=== PATIENT | female | born 1930 | race Caucasian/White ===

== ENCOUNTER 2019-07-23 00:17 | Inpatient (IN) | payer MEDICARE ==
[~2019-07-23] VITALS: Ht 149.9 cm; Wt 65.5 kg
[2019-07-23] VITALS (7 sets, daily range): BP systolic 118–179; BP diastolic 53–72
--- NOTE | 2019-07-23 00:24 | PHYS DOC ---
Past History Past Medical History: Arthritis, Asthma, CAD, CHF, COPD Past Surgical History: Coronary Bypass Surgery, Pacemaker Adult General Chief Complaint Chief Complaint: ".. I here.. visiting.. my ... daughter... got a bug ... or something.. really short.....of....breath....I .. feel.....like flu.... or something... :" [facility] HPI Patient is a 88 year old female who presents with above hx and complaints of dyspnea, wheezing, malaise, fevers, arthralgia, and coughing. Patient states she is from [facility] and is currently visiting her daughter here in [place] for the Holidays. ( Pt. has been living with daughter here for more than a year). Patient has past medical history of diabetes, hypertension, asthma, Parkinson's disease, constipation, A. fib, coronary artery disease with bypass surgery and pacer placement. The patient takes Zarelto 15 mg day. Patient is not normally on oxygen. Paramedics arrived sats were in the 80s on arrival. Paramedics and patient relates that DuoNeb treatments seemed to help her shortness of breath. Patient does have a history of past asthma exacerbations resulting in hospital admissions. Patient currently living with daughter here in [facility] for the past year because of generalized deconditioning and dementia issues. .Pt. reportedly doing well, had just been out shopping at [employer] day before yesterday. Pt. apparently likes ridding the scooter around the store. Review of Systems Review of Systems Constitutional: Hx of fever or chills [] Eyes: Denies change in visual acuity, redness, or eye pain [] HENT: Denies nasal congestion or sore throat [] Respiratory: Hx cough and shortness of breath [] Cardiovascular: No additional information not addressed in HPI [] GI: Denies abdominal pain, nausea, vomiting, bloody stools or diarrhea [] : Denies dysuria or hematuria [] Musculoskeletal: Denies back pain or joint pain [] Integument: Denies rash or skin lesions [] Neurologic: Denies headache, focal weakness or sensory changes [] Endocrine: Denies polyuria or polydipsia [] All other systems were reviewed and found to be within normal limits, except as documented in this note. Family History Family History Non-contrib Current Medications Current Medications Seee nursing for home meds Allergies Allergies Allergic to penicillin Physical Exam Physical Exam Constitutional: acute distress, ill in appearance. [] HENT: Normocephalic, atraumatic, bilateral external ears normal, oropharynx moist, no oral exudates, nose normal. [] Eyes: PERRLA, EOMI, conjunctiva normal, no discharge. [] Neck: Normal range of motion, no tenderness, supple, no stridor. [] JVD Cardiovascular:Heart rate regular rhythm, no murmur OR to the left] Lungs & Thorax: Bilateral breath sounds equal apexes scattered wheezes on au scultation. Has []midline scar. Left pacer . Intercostal retractions. Abdomen: Bowel sounds decreased, soft, no tenderness, no masses, no pulsatile masses. [Old scar Skin: Warm, dry, no erythema, no rash. Poor turgor Back: No tenderness, no CVA tenderness. [] Extremities: No tenderness, no cyanosis, no clubbing, ROM intact, no edema. Arthritic changes Neurologic: Alert and oriented X 3, moves extremities on request. Has distal sensory, no focal deficits noted per daughter, Tremor. Psychologic: Affect anxious, judgement impaired, obvious memory problems.., mood normal. [] EKG EKG My interpretation EKG shows a paced rhythm at 61 bpm. Does appear to have a pacer marked before T waves[] Radiology/Procedures Radiology/Procedures [][place] [address] IMAGING REPORT Signed PATIENT: CAIT PATTERSON ACCOUNT: [id number] : 1930 LOCATION: ER AGE: 88 SEX: F EXAM STATUS: PRE ER ORD. PHYSICIAN: VIKI MCKINNON MD REASON: Dyspnea, chest pain PROCEDURE: PORTABLE CHEST 1V AP chest x-ray HISTORY: Dyspnea, chest pain. FINDINGS: Dual-chamber cardiac pacemaker. Mediastinum and coronary bypass. Mild/moderate cardiomegaly. Aortic arch calcified plaque. Prominence of the pulmonary vasculature may indicate congestion. No pneumothorax, pulmonary opacities or pleural effusions. IMPRESSION: Mild cardiomegaly and pulmonary vascular congestion. Electronically signed by: Raz Hunter MD (07/23/2019 1:20 AM) [facility] DICTATED AND SIGNED BY: RAZ HUNTER MD DATE: 07/23/19119 CC: VIKI MCKINNON MD ~ Course & Med Decision Making Course & Med Decision Making Pertinent Labs and Imaging studies reviewed. (See chart for details) Pt admitted Dr. Rayo with Cardiology consult. Consult - will need home oxygen. Plan interrogation of pacer. Impression: 1. Respiratory Failure - Hypoxia 2. Asthma exacerbation 3. Accelerated hypertension 4. Viral syndrome 5. CHF-diastolic dysfunction BNP 864 6. Elevated d-dimer- 1.54 ( ON XARELTO 15) 7. Diabetes= glucose 197 8. History of dementia 9. History of Parkinson disease 10. History of A. fib & CADz 11. Mild elevation in AST= 42 12. Elevation Creat./ Bun 1.08/04 [] Dragon Disclaimer Dragon Disclaimer This electronic medical record was generated, in whole or in part, using a voice recognition dictation system. Departure Departure: Disposition: 01 HOME/RESIDENCE PRIOR TO ADM Condition: STABLE Dragon Disclaimer This chart was dictated in whole or in part using Voice Recognition software in a busy, high-work load, and often noisy Emergency Department environment. It may contain unintended and wholly unrecognized errors or omissions. Dragon Disclaimer This chart was dictated in whole or in part using Voice Recognition software in a busy, high-work load, and often noisy Emergency Department environment. It may contain unintended and wholly unrecognized errors or omissions. Dragon Disclaimer This chart was dictated in whole or in part using Voice Recognition software in a busy, high-work load, and often noisy Emergency Department environment. It may contain unintended and wholly unrecognized errors or omissions. VIKI MCKINNON MD Jul 23, 2019 00:24
[2019-07-23] MEDS ORDERED: ASPIRIN 81 MG TAB.CHEW PO ONE ×2 (00:45→02:15)
[2019-07-23] MEDS ORDERED: methylPREDNISolone SOD SUCC PF 125 MG/2 ML VIAL. IV ONE (00:45)
[2019-07-23] MEDS ORDERED: IV RINGERS SOLUTION,LACTATED 1,000 ML IV SCH (00:45)
[2019-07-23] MEDS ORDERED: IPRATRPIUM/ALBUTEROL 0.5/2.5MG 3 ML NEBU. NEB ONE (00:45)
[2019-07-23 00:51] LABS: BGAS PH 7.41 (7.35-7.45)
--- NOTE | 2019-07-23 01:23 | RAD ---
AP chest x-ray HISTORY: Dyspnea, chest pain. FINDINGS: Dual-chamber cardiac pacemaker. Mediastinum and coronary bypass. Mild/moderate cardiomegaly. Aortic arch calcified plaque. Prominence of the pulmonary vasculature may indicate congestion. No pneumothorax, pulmonary opacities or pleural effusions. IMPRESSION: Mild cardiomegaly and pulmonary vascular congestion. Electronically signed by: Raz Hunter MD (07/23/2019 1:20 AM) [facility]
[2019-07-23 01:41] LABS: CREATININE 1.1 mg/dL (0.6-1.0); GFR 46.9; POTASSIUM 4.1 mmol/L (3.5-5.1)
[2019-07-23 01:42] LABS: BASO # 0.1 x10^3/uL (0.0-0.2); BASO % 1 % (0-3); EOS # 0.3 x10^3/uL (0.0-0.7); EOS % 3 % (0-3); HEMATOCRIT 38.2 % (36.0-47.0); HEMOGLOBIN 12.6 g/dL (12.0-15.5); LYMPH # 1.1 x10^3/uL (1.0-4.8); LYMPH % 10 % (24-48); MEAN CORPUSCULAR HEMOGLOBIN 31 pg (25-35); MEAN CORPUSCULAR HGB CONC 33 g/dL (31-37); MEAN CORPUSCULAR VOLUME 94 fL (79-100); MONO # 1.1 x10^3/uL (0.0-1.1); MONO % 10 % (0-9); NEUT # 8.2 x10^3uL (1.8-7.7); NEUT % 76 % (31-73); PLATELET COUNT 297 x10^3/uL (140-400); RED BLOOD COUNT 4.07 x10^6/uL (3.50-5.40); RED CELL DISTRIBUTION WIDTH 15.6 % (11.5-14.5); WHITE BLOOD COUNT 10.8 x10^3/uL (4.0-11.0)
[2019-07-23 01:56] LABS: ALBUMIN 3.4 g/dL (3.4-5.0); DIRECT BILIRUBIN 0.1 mg/dL (0.0-0.2); MAGNESIUM 2.2 mg/dL (1.8-2.4); TOTAL BILIRUBIN 0.4 mg/dL (0.2-1.0); TOTAL PROTEIN 7.5 g/dL (6.4-8.2)
[2019-07-23 02:08] LABS: CLARITY,URINE CLEAR; COLOR,URINE YELLOW
[2019-07-23 02:09] LABS: AMORPHOUS SEDIMENT,UR PRESENT /HPF; BACTERIA,URINE FEW /HPF (0-FEW); BILIRUBIN,URINE NEG (NEG); GLUCOSE,URINE NEG (NEG); NITRITE,URINE NEG (NEG); SQUAMOUS EPITHELIAL CELL,UR OCC /LPF; UROBILINOGEN,URINE 0.2 mg/dL (0.2 mg/dL); WBC,URINE 0 /HPF (0-4)
[2019-07-23] MEDS ORDERED: ACETAMINOPHEN 325 MG TABLET PO PRN ×2 (02:15→14:30)
[2019-07-23] MEDS ORDERED: ONDANSETRON PF 4 MG/2 ML VIAL. IV PRN (02:15)
[2019-07-23] MEDS ORDERED: FUROSEMIDE 40 MG/4 ML VIAL IVP ONE (02:15)
[2019-07-23 02:20] LABS: BARBITURATES NEG (NEG); BENZODIAZEPINES NEG (NEG); CANNABINOIDS NEG (NEG); COCAINE NEG (NEG); METHADONE NEG (NEG); OPIATES NEG (NEG); PHENCYCLIDINE NEG (NEG)
[2019-07-23 02:24] LABS: AMPHETAMINE/METHAMPHETAMINE NEG (NEG)
[2019-07-23] MEDS ORDERED: cloNIDine TTS-2 1 PATCH PATCH TD ONE (02:45)
[2019-07-23] MEDS ORDERED: ENOXAPARIN ** NOTE DOSE ** SYRINGE SQ ONE (03:00)
--- NOTE | 2019-07-23 03:27 | NUR ---
The patient, CAIT PATTERSON, 88 y/o, F admitted by RENETTA SHANE MD, was given written information regarding hospital policies, unit procedures and contact persons. Valuables were checked and logged. Call light in place. Will continue to monitor.
[2019-07-23 03:35] LABS: INFLUENZA A PATIENT NEGATIVE (NEGATIVE); INFLUENZA B PATIENT NEGATIVE (NEGATIVE)
[2019-07-23] MEDS ORDERED: LUTE1CAP5 PO (05:38)
[2019-07-23] MEDS ORDERED: METF500T16 PO (05:38)
[2019-07-23] MEDS ORDERED: SPIR25TA5 PO (05:38)
[2019-07-23] MEDS ORDERED: POLY2500 MC (05:38)
[2019-07-23] MEDS ORDERED: CARV6.2541 PO (05:38)
[2019-07-23] MEDS ORDERED: MAGN400O7 PO (05:38)
[2019-07-23] MEDS ORDERED: LORA10TA3 PO (05:38)
[2019-07-23] MEDS ORDERED: ACET325T21 PO (05:38)
[2019-07-23] MEDS ORDERED: AMIO200T4 PO (05:38)
[2019-07-23] MEDS ORDERED: FERR325T14 PO (05:38)
[2019-07-23] MEDS ORDERED: FLUT1BLS IH (05:38)
[2019-07-23] MEDS ORDERED: FOLI0.8T32 PO (05:38)
[2019-07-23] MEDS ORDERED: FLUT15.812 NS (05:38)
[2019-07-23] MEDS ORDERED: NA P133E2 RC (05:38)
[2019-07-23] MEDS ORDERED: BUME1TAB3 PO (05:38)
[2019-07-23] MEDS ORDERED: BISA10SU4 RC (05:38)
[2019-07-23] MEDS ORDERED: ATOR40TA59 PO (05:38)
[2019-07-23] MEDS ORDERED: CARB1TAB22 PO (05:38)
[2019-07-23] MEDS ORDERED: MULT-735 PO (05:38)
[2019-07-23] MEDS ORDERED: LATA2.5D3 EACHEYE (05:38)
[2019-07-23] MEDS ORDERED: ALBU2.5V8 IH (05:38)
[2019-07-23] MEDS ORDERED: RIVA15TA PO (05:38)
[2019-07-23] MEDS ORDERED: CHOL200027 PO (05:38)
[2019-07-23] MEDS ORDERED: BENA20TA4 PO (05:38)
[2019-07-23] MEDS ORDERED: INSU100V13 SQ (05:38)
[2019-07-23] MEDS ORDERED: IPRATRPIUM/ALBUTEROL 0.5/2.5MG 3 ML NEBU. ONE (05:40)
[2019-07-23] MEDS: IPRATRPIUM/ALBUTEROL 0.5/2.5MG 3 ML NEBU. NEB SCH ×4 (05:46→20:50)
--- NOTE | 2019-07-23 08:29 | RAD ---
Bilateral lower extremity venous doppler ultrasound Indication: Dyspnea, elevated d-dimer . Technique: Color Doppler, grayscale, and spectral waveform analysis is used to evaluate the right and left lower extremity deep venous system, including the common femoral vein, superficial femoral vein, popliteal vein, and visualized calf veins. Right leg: No evidence of deep venous thrombosis. Normal response to augmentation, normal compressibility and normal phasicity is demonstrated. Visualized calf veins are patent. Left leg: No evidence of deep venous thrombosis. Normal response to augmentation, normal compressibility and normal phasicity is demonstrated. Visualized calf veins are patent. Impression: Negative for deep venous thrombosis Electronically signed by: Marvin Andre MD (07/23/2019 8:26 AM) [facility]
--- NOTE | 2019-07-23 08:54 | PDOC ---
PROVIDER NOTE PROVIDER NOTE PROVIDER NOTE Reason for admission: Shortness of breath HPI: Very pleasant 88 y.o woman presenting for worsening shortness of breath. Apparently she has been in her usual state of health until a couple days ago. She thinks she has had a cold but no cough. She denies any associated chest pain, palpitations, orthopnea, LE edema or other cardiac issues. She has been compliant with meds. Denies any other recent hospitalizations. In ER she was noted be hypoxic and given breathing treatments and admitted for further evaluation. Pmhx: (No OSH records available) but based on evaluation and discussion with patient 1. CAD s/p cABG 2. PAF on amiodarone and xarelto 3. Tachybrady - s/p dual chamber pacemaker. 4. HTN 5. DM2 6. Dyslipidemia. Sochx: No alcohol, prior tob abuse, no illicits. Famhx: Non contributory ALL: reviewed. ROS: Negative unless otherwise noted above in HPI Physical Exam: VSS Tele unremarkable. Normal heart tones. Neck veins minimally elevated Accessory muscle use noted. Lungs w/o sign wheezing. Soft abd No edema. 2 + radial, 1+ DP pulses. Non focal neuro exam. Labs reviewed. Trop negative. EKG pending Impression: 1. Acute hypoxic resp failure - DDx is broad, less likely to be acute diastolic HF as BNP is only minimally elevated and no significant HF on exam. Could consider pacemaker interrogation but currently she does not appear to have any arrhythmias. 2. CAD s/p cabg - stable w/o angina currently - Trop negative. 3. HTN - labile but not likely culprit for presentation Recs: 1. Await LE doppler scan given positive d-dimer. No clear risk factors for DVT as she is already on Xarelto. 2. Continue pulmonary treatments. No acute need for aggressive diuresis. 3. Continue home amiodarone, atorvastatin, benazepril, bumex, coreg 6.25mg bid, spironolactone, Xarelto. I spoke with the patient's daughter and primary care physician in [place]. No obvious cardiac issues noted. She apparently underwent extensive cardiac evaluation in Jun 2019. Will await call back from her primary neuro psych sales specialist. Supportive care. Thanks. LORETTA SMALLS MD Jul 23, 2019 08:54
[2019-07-23] MEDS ORDERED: methylPREDNISolone SOD SUCC PF 40 MG/ML VIAL. IV SCH (09:00)
[2019-07-23] MEDS ORDERED: DEXTROSE 50% 25 GM / 50ML DISP.SYRIN. IV PRN (12:30)
[2019-07-23] MEDS ORDERED: ALBUTEROL SULFATE 2.5 MG/3 ML NEBU. IH PRN (14:30)
[2019-07-23] MEDS ORDERED: BISACODYL 10 MG SUPP.RECT RC PRN (14:30)
[2019-07-23] MEDS ORDERED: MAGNESIUM HYDROXIDE 2,400 MG/30 ML ORAL.SUSP. PO PRN (14:30)
[2019-07-23] MEDS ORDERED: ALBUTEROL SULFATE 2.5 MG/3 ML NEBU. NEB PRN (15:00)
--- NOTE | 2019-07-23 15:27 | HP ---
ADMIT DATE: 07/23/2019 HISTORY OF PRESENT ILLNESS: The patient is an 88-year-old female patient who presented to the Emergency Room complaining that she is short of breath. She did complain of wheezing, malaise, fever, arthralgia, and coughing. She stated that she is from [place], [place] and is currently visiting her daughter here in [place] for the holidays. Actually, patient has been living with her daughter for more than a year and she has been weak and demented. She has been doing well just and had been out shopping with her at [facility] on the day before yesterday and normally likes riding the scooter around the store. She was evaluated in the Emergency Room, has had an EKG, which was paced rhythm at 61 beats per minute. Her chest x-ray showed that she has mild cardiomegaly and pulmonary vascular congestion and has had lab work, which showed that her white cell count was normal. Blood gases showed that she has hypoxic respiratory failure. Her D-dimer was slightly elevated. Prothrombin time, INR, and PTT was slightly elevated. Her chemistry showed also slightly impaired kidney function. Her toxic screen was negative and her influenza A and B were negative. She was admitted with acute hypoxic respiratory failure, asthma exacerbation, accelerated hypertension, and diastolic congestive heart failure. Her D-dimer was high at 1.54. However, the patient is already on Xarelto. She was admitted and was actually treated with IV Lasix, steroids, and inhalers, and her first set of troponin was less than 0.017. We did consult the senior account executive to see her. PAST MEDICAL HISTORY: Significant for type 2 diabetes mellitus without complication, dementia without behavioral disturbances, resistant atrial fibrillation, sick sinus syndrome requiring a permanent pacemaker. She is known to have atherosclerotic heart disease of [place] coronary arteries without angina pectoris, heart failure, hyperlipidemia, essential hypertension, seasonal allergies, glaucoma, muscle weakness is generalized and unsteady gait, unspecified symptoms and signs of poor cognitive function and awareness. PAST SURGICAL HISTORY: Significant for permanent pacemaker placement. ALLERGIES: She is allergic to APIXABAN, PENICILLIN, AVANDIA, DITROPAN, EVISTA, OYSTERS, GOLD COMPOUNDS, and WOOL. MEDICATIONS: She is currently on the following medications: Acetaminophen 650 mg every 4 hours as needed, amiodarone 200 mg once a day, atorvastatin calcium 40 mg at bedtime, benazepril 10 mg once a day, bisacodyl suppository 10 mg rectally daily p.r.n. for constipation, Breo Ellipta aerosol powder once a day. She is on bumetanide 1 mg; she takes half a tablet 0.5 mg in the morning for resistant hypertension. She is on polyethylene glycol 17 grams daily, spironolactone 25 mg once a day, Ventolin inhaler 2 puffs every 4 hours. She is on Xarelto 15 mg 1 tablet once a day for atrial fibrillation. FAMILY HISTORY: Noncontributory. SOCIAL HISTORY: She currently lives with her daughter. She does not smoke, drink alcohol or use any recreational drugs. REVIEW OF SYSTEMS: As per history of present illness. PHYSICAL EXAMINATION: GENERAL: On arrival to the Emergency Room, she looked well and was clearly in no apparent respiratory distress. No pallor, jaundice, cyanosis or thyromegaly. No jugular venous distention. No lower limb edema. VITAL SIGNS: Her heart rate was 62, blood pressure 143/56, temperature 97.6, respiratory rate was 28, and oxygen saturation was 93%. HEAD, EYES, EARS, NOSE, AND THROAT: Normocephalic, atraumatic. NECK: Supple. HEART: Showed normal first and second heart sounds. No gallop or murmur. CHEST: Showed equal bilateral chest expansion and air entry with scattered wheeze on auscultation. ABDOMEN: Distended, soft, nontender. Bowel sounds normal. NEUROLOGIC: She was alert, oriented x 3, moves extremities on request, has no focal deficit noted. DIAGNOSTIC DATA: Her EKG showed a paced rhythm at 61 beats per minute. LABORATORY DATA: Her lab work showed a white cell count 10,800, hemoglobin 12.6, hematocrit 38, MCV 94, and platelet count of 297,000 with normal manual differential. Her serum sodium was 141, potassium 4.1, chloride 101, bicarbonate 31, anion gap of 9, BUN 23, creatinine 1.1, estimated GFR was 47 mL per minute, glucose 197, calcium was 9, magnesium was 2.2. Total bilirubin, AST, ALT, and alkaline phosphatase were normal. CK was 78 and BNP was 864. Total protein was 7.5, albumin 3.4. Her TSH was 0.837. Her prothrombin time, INR, and aPTT were slightly elevated. D-dimer was slightly elevated at 1.54. Blood gas showed a pH of 7.41, pCO2 of 44, pO2 of 58, bicarbonate 28, and oxygen saturation was 90% on room air. Her urinalysis showed the urine was yellow, clear with a pH of 5.5, specific gravity more than 1.030. There was large amount of protein, negative for glucose, negative for ketones, trace of blood, negative for nitrite, and negative for bilirubin as well as negative for leukocyte esterase, and 3-5 rbc's. Her toxic screen was negative and influenza A and B were negative. ASSESSMENT AND PLAN: The patient was admitted with acute hypoxic respiratory failure, multifactorial. We will continue all her medication for now and follow her labs closely. RENETTA SHANE MD DR: DM/dilcia JOB#: [id number] / [id number]
[2019-07-23] MEDS: FOLIC/VIT B COMP W-C (RENAL) TABLET. PO SCH (15:34)
[2019-07-23] MEDS: CHOLECALCIFEROL (VITAMIN D3) 1,000 UNIT TABLET PO SCH (15:34)
[2019-07-23] MEDS: BUMETANIDE 1 MG TABLET PO SCH (15:35)
[2019-07-23] MEDS: SPIRONOLACTONE 25 MG TABLET PO SCH (15:35)
[2019-07-23] MEDS: FERROUS SULFATE 325 MG TABLET. PO SCH (15:35)
[2019-07-23] MEDS: RIVAROXABAN 15 MG TABLET. PO SCH (15:35)
[2019-07-23] MEDS: AMIODARONE HCL 200 MG TABLET PO SCH (15:36)
[2019-07-23] MEDS: LISINOPRIL 10 MG TABLET PO SCH (15:36)
[2019-07-23] MEDS: CETIRIZINE HCL 10 MG TABLET PO SCH (15:37)
[2019-07-23] MEDS: ALBUTEROL SULFATE 2.5 MG/3 ML NEBU. NEB SCH ×2 (16:00→20:00)
[2019-07-23 16:11] LABS: ALBUMIN 3.1 g/dL (3.4-5.0); ALBUMIN/GLOBULIN RATIO 0.8 (1.0-1.7); CALCIUM 8.8 mg/dL (8.5-10.1); CREATININE 1.3 mg/dL (0.6-1.0); GFR 38.7; POTASSIUM 4.8 mmol/L (3.5-5.1); TOTAL BILIRUBIN 0.4 mg/dL (0.2-1.0); TOTAL PROTEIN 6.9 g/dL (6.4-8.2)
[2019-07-23] MEDS: INSULIN LISPRO 300 UNITS/3 ML VIAL. SQ SCH ×2 (17:00→17:06)
[2019-07-23] MEDS: CARVEDILOL 6.25 MG TABLET PO SCH (17:04)
[2019-07-23] MEDS: CARBIDOPA/LEVODOPA 25/100MG TABLET PO SCH (20:38)
[2019-07-23] MEDS: ATORVASTATIN CALCIUM 20 MG TABLET PO SCH (20:38)
[2019-07-23] MEDS: INSULIN GLARGINE SYRINGE. SQ SCH (20:40)
[2019-07-23] MEDS: LATANOPROST 0.005% OPHTH SOLUTION 2.5ML BOTTLE. OU SCH (20:40)
[2019-07-23] MEDS: BUDESONIDE 0.5 MG/2 ML NEBU NEB SCH (20:50)
[2019-07-23] MEDS ORDERED: INSULIN GLARGINE SYRINGE. SQ SCH (21:00)
--- NOTE | 2019-07-24 02:06 | EKG ---
[address] [address] Test Date: 2019-07-23 Test Time: 00:45:34 Pat Name: CAIT PATTERSON Department: Room: Gender: F Seasonal Clerk: : 1930 Requested By: VIKI MCKINNON Order Number: [id number] Reading MD: Measurements Intervals [place] Rate: 61 P: [place]: QRS: -59 QRSD: 182 T: 110 QT: 506 QTc: 511 Interpretive Statements IRREGULAR RHYTHM, NO P-WAVE FOUND COMPLEX(ES) WITH ABERRANT INTRAVENTRICULAR CONDUCTION ABNORMAL LEFT AXIS DEVIATION NON SPECIFIC INTRAVENTRICULAR BLOCK QRS(T) CONTOUR ABNORMALITY CONSIDER ANTEROSEPTAL MYOCARDIAL DAMAGE ABNORMAL ECG RI6.01 No previous ECG available for comparison
[2019-07-24] MEDS: IPRATRPIUM/ALBUTEROL 0.5/2.5MG 3 ML NEBU. NEB SCH (05:25)
[2019-07-24 06:21] VITALS: BP 129/57
[2019-07-24] MEDS ORDERED: INSULIN LISPRO 300 UNITS/3 ML VIAL. SQ SCH (07:30)
[2019-07-24] MEDS: FLUTICASONE 50MCG/NASAL SPRAY 16GM BOTTLE. NS SCH (08:02)
[2019-07-24] MEDS: MULTIVITAMIN I-VITE TABLET. PO SCH (08:03)
[2019-07-24] MEDS: AMIODARONE HCL 200 MG TABLET PO SCH (08:03)
[2019-07-24] MEDS: CHOLECALCIFEROL (VITAMIN D3) 1,000 UNIT TABLET PO SCH (08:03)
[2019-07-24] MEDS: CETIRIZINE HCL 10 MG TABLET PO SCH (08:03)
[2019-07-24] MEDS: MULTIVITAMIN with MINERAL TABLET. PO SCH (08:03)
[2019-07-24] MEDS: SPIRONOLACTONE 25 MG TABLET PO SCH (08:04)
[2019-07-24] MEDS: CARVEDILOL 6.25 MG TABLET PO SCH ×2 (08:04→17:16)
[2019-07-24] MEDS: metFORMIN 500 MG TABLET PO SCH (08:04)
[2019-07-24] MEDS: LISINOPRIL 10 MG TABLET PO SCH (08:04)
[2019-07-24] MEDS: INSULIN LISPRO 300 UNITS/3 ML VIAL. SQ SCH ×6 (08:08→17:04)
[2019-07-24] MEDS: FERROUS SULFATE 325 MG TABLET. PO SCH (08:09)
[2019-07-24] MEDS: FOLIC/VIT B COMP W-C (RENAL) TABLET. PO SCH (08:10)
[2019-07-24 08:11] LABS: BASO # 0.1 x10^3/uL (0.0-0.2); BASO % 1 % (0-3); EOS % 0 % (0-3); HEMATOCRIT 35.3 % (36.0-47.0); HEMOGLOBIN 11.6 g/dL (12.0-15.5); LYMPH % 7 % (24-48); MEAN CORPUSCULAR HEMOGLOBIN 31 pg (25-35); MEAN CORPUSCULAR HGB CONC 33 g/dL (31-37); MEAN CORPUSCULAR VOLUME 94 fL (79-100); MONO # 1.3 x10^3/uL (0.0-1.1); MONO % 9 % (0-9); NEUT # 11.1 x10^3uL (1.8-7.7); NEUT % 83 % (31-73); PLATELET COUNT 302 x10^3/uL (140-400); RED BLOOD COUNT 3.76 x10^6/uL (3.50-5.40); RED CELL DISTRIBUTION WIDTH 15.9 % (11.5-14.5); WHITE BLOOD COUNT 13.4 x10^3/uL (4.0-11.0)
[2019-07-24 08:21] LABS: CALCIUM 9.4 mg/dL (8.5-10.1); CREATININE 1.1 mg/dL (0.6-1.0); GFR 46.9; POTASSIUM 4.7 mmol/L (3.5-5.1)
[2019-07-24] MEDS ORDERED: POLYETHYLENE GLYCOL 3350 17 GM PACKET. PO PRN (09:00)
[2019-07-24] MEDS ORDERED: NON FORMULARY ITEM (Fluticasone/Vilanterol (Breo Ellipta 200-25 Mcg INH) 1 PUFF) IH SCH (09:00)
[2019-07-24] MEDS: ALBUTEROL SULFATE 2.5 MG/3 ML NEBU. NEB SCH ×4 (10:23→20:00)
[2019-07-24] MEDS: BUDESONIDE 0.5 MG/2 ML NEBU NEB SCH ×2 (10:23→20:46)
[2019-07-24 10:41] VITALS: BP 118/60
[2019-07-24] MEDS: RIVAROXABAN 15 MG TABLET. PO SCH (12:54)
[2019-07-24] MEDS: BUMETANIDE 1 MG TABLET PO SCH (12:54)
[2019-07-24 14:53] VITALS: BP 100/53
--- NOTE | 2019-07-24 18:55 | PN ---
DATE: SUBJECTIVE: The patient is an 88-year-old female patient who continued to complain of being weak, tired. She continued to require oxygen. Her chest x-ray showed mild cardiomegaly and pulmonary vascular congestion and her bilateral lower extremity venous Doppler ultrasound was negative for deep vein thrombosis. PHYSICAL EXAMINATION: GENERAL: When I examined her this morning, she was resting, almost flat in bed, in no apparent distress, pale, no jaundice or cyanosis. No lymphadenopathy, no thyromegaly. No jugular venous distension. No lower limb edema. VITAL SIGNS: Her heart rate was 63, blood pressure was 118/60, temperature 97.5, respiratory rate was 20, and oxygen saturation was 95% on 2 liters of oxygen. HEAD, EYES, EARS, NOSE AND THROAT: Showed normocephalic, atraumatic. NECK: Supple. HEART: Showed normal first and second heart sounds. No gallop or murmur. CHEST: Clear to auscultation. No crepitation or rhonchi. ABDOMEN: Distended, soft, nontender. NEUROLOGIC: She is awake, alert, responding appropriately. All cranial nerves intact. She moves extremities without difficulty. She ambulates with a walker with standby assist. Her intake over the last 24 hours was 390, no output was recorded. LABORATORY DATA: Her lab work this morning showed a white cell count was 15,400, hemoglobin 11.6, hematocrit 35, MCV 94 and platelet count 302,000. Her chemistry showed a serum sodium 139, potassium 4.7, chloride 100, bicarbonate 32, anion gap of 7, BUN 35, creatinine 1.1, estimated GFR was 46 mL per minute. Her glucose was 258, calcium was 9.4. Her prothrombin time, INR and aPTT were normal. D-dimer was high at 1.45. Urinalysis was unremarkable and toxic screen was negative. Her influenza A and B were negative. ASSESSMENT: 1. Acute hypoxic respiratory failure. 2. The patient is known to have coronary artery disease, status post coronary artery bypass grafting. 3. Paroxysmal atrial fibrillation, on amiodarone and Xarelto. 4. Tachy-alicia status post dual chamber pacemaker. 5. Hypertension. 6. Type 2 diabetes. 7. Hyperlipidemia. PLAN: To continue with her current plan of management. I will repeat her chest x-ray again. We will do also a 6-minute walk to qualify her for oxygen. RENETTA SHANE MD DR: DM/dilcia JOB#: [id number] / [id number]
[2019-07-24 19:30] VITALS: BP 98/56
[2019-07-24] MEDS: ATORVASTATIN CALCIUM 20 MG TABLET PO SCH (20:36)
[2019-07-24] MEDS: LATANOPROST 0.005% OPHTH SOLUTION 2.5ML BOTTLE. OU SCH (20:36)
[2019-07-24] MEDS: CARBIDOPA/LEVODOPA 25/100MG TABLET PO SCH (20:36)
[2019-07-24] MEDS: INSULIN GLARGINE SYRINGE. SQ SCH (20:41)
[2019-07-24 23:02] VITALS: BP 128/69
[2019-07-25] MEDS: ALBUTEROL SULFATE 2.5 MG/3 ML NEBU. NEB SCH ×3 (05:37→16:12)
[2019-07-25 06:12] VITALS: BP 132/71
[2019-07-25 06:13] LABS: HEMATOCRIT 34.2 % (36.0-47.0); HEMOGLOBIN 11.3 g/dL (12.0-15.5); RED BLOOD COUNT 3.65 x10^6/uL (3.50-5.40); RED CELL DISTRIBUTION WIDTH 15.7 % (11.5-14.5); WHITE BLOOD COUNT 10.6 x10^3/uL (4.0-11.0)
[2019-07-25 06:19] LABS: CALCIUM 8.4 mg/dL (8.5-10.1); CREATININE 1.3 mg/dL (0.6-1.0); GFR 38.7; POTASSIUM 4.8 mmol/L (3.5-5.1)
--- NOTE | 2019-07-25 07:56 | PDOC ---
CARDIO Progress Notes Date & Time Date of Service DATE: 07/25/19 TIME: 07:52 Time of Evaluation 07:52 Subjective Notes Confused; wants to know how she got here Vitals Vitals Vital Signs Date Time Temp Pulse Resp B/P (MAP) Pulse Ox O2 Delivery O2 Flow Rate FiO2 07/25/19 06:12 97.5 60 20 132/71 (91) 94 Room Air 07/24/19 10:41 2.0 Weight Weight [ ] Input and Output I.O. Intake and Output 07/25/19 06:59 Intake Total 1200 ml Balance 1200 ml Intake Oral 1200 ml # Voids 7 # Bowel Movements 3 Laboratory Labs Laboratory Tests Test 07/23/19 11:56 07/23/19 15:20 07/24/19 07:35 07/24/19 07:37 Glucose (Fingerstick) 460 mg/dL (70-99) 254 mg/dL (70-99) Sodium Level 134 mmol/L (136-145) 139 mmol/L (136-145) Potassium Level 4.8 mmol/L (3.5-5.1) 4.7 mmol/L (3.5-5.1) Chloride Level 96 mmol/L (98-107) 100 mmol/L (98-107) Carbon Dioxide Level 26 mmol/L (21-32) 32 mmol/L (21-32) Anion Gap 12 (6-14) 7 (6-14) Blood Urea Nitrogen 33 mg/dL (7-20) 35 mg/dL (7-20) Creatinine 1.3 mg/dL (0.6-1.0) 1.1 mg/dL (0.6-1.0) Estimated GFR (Cockcroft-Gault) 38.7 46.9 BUN/Creatinine Ratio 25 (6-20) Glucose Level 506 mg/dL (70-99) 258 mg/dL (70-99) Calcium Level 8.8 mg/dL (8.5-10.1) 9.4 mg/dL (8.5-10.1) Total Bilirubin 0.4 mg/dL (0.2-1.0) Aspartate Amino Transf (AST/SGOT) 75 U/L (15-37) Alanine Aminotransferase (ALT/SGPT) 100 U/L (14-59) Alkaline Phosphatase 83 U/L (46-116) Total Protein 6.9 g/dL (6.4-8.2) Albumin 3.1 g/dL (3.4-5.0) Albumin/Globulin Ratio 0.8 (1.0-1.7) White Blood Count 13.4 x10^3/uL (4.0-11.0) Red Blood Count 3.76 x10^6/uL (3.50-5.40) Hemoglobin 11.6 g/dL (12.0-15.5) Hematocrit 35.3 % (36.0-47.0) Mean Corpuscular Volume 94 fL (79-100) Mean Corpuscular Hemoglobin 31 pg (25-35) Mean Corpuscular Hemoglobin Concent 33 g/dL (31-37) Red Cell Distribution Width 15.9 % (11.5-14.5) Platelet Count 302 x10^3/uL (140-400) Neutrophils (%) (Auto) 83 % (31-73) Lymphocytes (%) (Auto) 7 % (24-48) Monocytes (%) (Auto) 9 % (0-9) Eosinophils (%) (Auto) 0 % (0-3) Basophils (%) (Auto) 1 % (0-3) Neutrophils # (Auto) 11.1 x10^3uL (1.8-7.7) Lymphocytes # (Auto) 1.0 x10^3/uL (1.0-4.8) Monocytes # (Auto) 1.3 x10^3/uL (0.0-1.1) Eosinophils # (Auto) 0.0 x10^3/uL (0.0-0.7) Basophils # (Auto) 0.1 x10^3/uL (0.0-0.2) Test 07/24/19 10:23 07/24/19 11:52 07/24/19 16:34 07/25/19 05:53 Glucose (Fingerstick) 241 mg/dL (70-99) 216 mg/dL (70-99) 87 mg/dL (70-99) White Blood Count 10.6 x10^3/uL (4.0-11.0) Red Blood Count 3.65 x10^6/uL (3.50-5.40) Hemoglobin 11.3 g/dL (12.0-15.5) Hematocrit 34.2 % (36.0-47.0) Mean Corpuscular Volume 94 fL (79-100) Mean Corpuscular Hemoglobin 31 pg (25-35) Mean Corpuscular Hemoglobin Concent 33 g/dL (31-37) Red Cell Distribution Width 15.7 % (11.5-14.5) Platelet Count 297 x10^3/uL (140-400) Sodium Level 140 mmol/L (136-145) Potassium Level 4.8 mmol/L (3.5-5.1) Chloride Level 103 mmol/L (98-107) Carbon Dioxide Level 29 mmol/L (21-32) Anion Gap 8 (6-14) Blood Urea Nitrogen 50 mg/dL (7-20) Creatinine 1.3 mg/dL (0.6-1.0) Estimated GFR (Cockcroft-Gault) 38.7 Glucose Level 177 mg/dL (70-99) Calcium Level 8.4 mg/dL (8.5-10.1) Test 07/25/19 07:27 Glucose (Fingerstick) 160 mg/dL (70-99) Microbiology Micro Microbiology 07/23/19 Blood Culture - Preliminary, Resulted NO GROWTH AFTER 2 DAYS... Physical Exams HEENT: Neck Supple W Full Motion Chest: Symmetric Lungs: Other (diminished ) Heart: RRR Abdomen: Soft N/T Extremities: No Edema Neurology: alert, confused Assessment Assessment 1. Acute hypoxic respiratory failure; improved 2. CAD s/p CABG; clinically stable 3. Hypertension; controlled 4. Hyperlipidemia; statin 5. Diabetes, II 6. PAF; on Amiodaroe and Xarelto for stoke prophylaxis. Maintaining SR 7. SSS s/p PPM 8. Dementia Recommendations Continue secondary prevention measures Follow up with primary codifier upon discharge CAROL SIMPSON APRN Jul 25, 2019 07:56
[2019-07-25] MEDS: CARVEDILOL 6.25 MG TABLET PO SCH (08:00)
[2019-07-25] MEDS: CETIRIZINE HCL 10 MG TABLET PO SCH (08:18)
[2019-07-25] MEDS: MULTIVITAMIN with MINERAL TABLET. PO SCH (08:18)
[2019-07-25] MEDS: FLUTICASONE 50MCG/NASAL SPRAY 16GM BOTTLE. NS SCH (08:18)
[2019-07-25] MEDS: MULTIVITAMIN I-VITE TABLET. PO SCH (08:19)
[2019-07-25] MEDS: BUMETANIDE 1 MG TABLET PO SCH (08:19)
[2019-07-25] MEDS: LISINOPRIL 10 MG TABLET PO SCH (08:19)
[2019-07-25] MEDS: SPIRONOLACTONE 25 MG TABLET PO SCH (08:20)
[2019-07-25] MEDS: metFORMIN 500 MG TABLET PO SCH (08:20)
[2019-07-25] MEDS: AMIODARONE HCL 200 MG TABLET PO SCH (08:20)
[2019-07-25] MEDS: CHOLECALCIFEROL (VITAMIN D3) 1,000 UNIT TABLET PO SCH (08:20)
[2019-07-25] MEDS: BUDESONIDE 0.5 MG/2 ML NEBU NEB SCH (08:21)
[2019-07-25] MEDS: FERROUS SULFATE 325 MG TABLET. PO SCH (08:21)
[2019-07-25] MEDS: INSULIN LISPRO 300 UNITS/3 ML VIAL. SQ SCH ×4 (08:40→12:15)
[2019-07-25] MEDS: FOLIC/VIT B COMP W-C (RENAL) TABLET. PO SCH (09:04)
[2019-07-25 10:33] VITALS: BP 101/62
[2019-07-25] MEDS: RIVAROXABAN 15 MG TABLET. PO SCH (12:08)
--- NOTE | 2019-07-25 14:30 | NUR ---
Dr. Mccarthy came, assessed pt and cleared by Cardiology. Will continue to monitor and assess as needed.
[2019-07-25 14:51] VITALS: BP 98/57
--- NOTE | 2019-07-25 15:38 | NUR ---
Called RT, pt to have 6 Min walk test before Discharge per Dr. Rayo. RT to be coming to unit shortly.
--- NOTE | 2019-07-25 17:01 | NUR ---
Discharge Note: CAROLEE PATTERSON [facility] Discharge instructions and discharge home medications reviewed with Patient and a copy given. All questions have been answered and understanding verbalized. The following instructions and handouts were given: Follow up with Primary Care Provider in 7-10 days or sooner if needed. Discontinued lines and drains: IV removed, catheter tip intact, no apparant complications, pressure dressing applied. Patient discharged to home.
--- NOTE | 2019-07-25 22:18 | DS ---
DATE OF DISCHARGE: HOSPITAL COURSE: The patient is an 88-year-old female patient who was admitted with acute hypoxic respiratory failure. She was extensively investigated and her lab works were unremarkable. Her white cell count, hemoglobin, hematocrit and platelets are all within acceptable range. Her D-dimer was high at 1.54 and we did ultrasound of both lower extremities showed no evidence of deep vein thrombosis. The patient was continued on all her medication including her diuretics and she did actually very well. She has been up and about walking with a walker without difficulty. We did actually even 6-minute walk and her oxygen saturation remained 96% even on exertion for incision, a decision was made to discharge her home to continue on her current medication. PHYSICAL EXAMINATION: GENERAL: When I saw her this afternoon, she was sitting on the edge of the bed comfortably in no apparent distress. No pallor, jaundice, cyanosis or thyromegaly. No jugular venous distension. No limb edema. VITAL SIGNS: Her heart rate was 64, blood pressure was 98/57, temperature 97.7, respiratory rate 20, and oxygen saturation was 98% on room air. HEAD, EYES, EARS, NOSE AND THROAT: Showed normocephalic, atraumatic. NECK: Supple. HEART: Showed normal first and second heart sounds. No gallop or murmur. CHEST: Clear to auscultation. No crepitation or rhonchi. ABDOMEN: Distended, soft, nontender. No guarding or rigidity. No organomegaly. All hernial orifice intact. Bowel sounds normal. NEUROLOGIC: She is awake, alert, responding appropriately. All cranial nerves are intact. He moves extremities without difficulty. She ambulates with a walker without difficulty. Her intake was 900, output was incompletely recorded. LABORATORY DATA: Her lab work this morning showed a white cell count of 10,000, hemoglobin 11, hematocrit 34, MCV 94, and platelet count 297,000. Her chemistry showed a serum sodium 140, potassium 4.8, chloride 103, bicarbonate 29, anion gap of 8, BUN 50, creatinine 1.3, estimated GFR was 38 mL per minute. Her glucose was 177, calcium was 8.4. Her influenza A and B were negative. Toxic screen was negative and urinalysis was essentially unremarkable. DISCHARGE MEDICATIONS: She was discharged home to continue on acetaminophen 650 mg every 6 hours, albuterol sulfate 1 puff every 4 hours, amiodarone 200 mg daily, atorvastatin calcium 40 mg at bedtime, benazepril 10 mg once a day, bisacodyl 10 mg suppository rectally daily p.r.n. for constipation, bumetanide 0.5 mg once a day, carbidopa/levodopa 25/100 at bedtime, carvedilol 6.25 mg twice a day, vitamin D3 1000 units p.o. daily, ferrous sulfate 325 mg daily, Flonase 1 spray to each nostril twice a day, Breo Ellipta 1 puff daily, Yessi-Noel 1 tablet once a day, insulin detemir, Levemir 15 units at bedtime, latanoprost 2.5 mg 1 drop to both eyes at bedtime, loratadine 10 mg once a day, Ocuvite 1 tablet once a day, magnesium hydroxide, milk of magnesia 30 mL p.o. daily p.r.n. for constipation, metformin 500 mg daily, multivitamin 1 tablet once a day, sodium phosphorus, Fleet enema 133 mL rectally daily p.r.n. for constipation, polyethylene glycol 17 grams daily, rivaroxaban 15 mg once a day and spironolactone 25 mg daily. FINAL DISCHARGE DIAGNOSES: 1. Acute hypoxic respiratory failure, resolved. The patient is actually ambulating, maintaining her oxygen saturation at 96% on room air at rest and on exertion. 2. The patient is known to have coronary artery disease, status post coronary artery bypass graft surgery. 3. Paroxysmal atrial fibrillation, rate controlled, well anticoagulated. 4. Tachybrady, status post dual chamber pacemaker. 5. Hypertension well controlled. 6. Type 2 diabetes. 7. Hyperlipidemia. RENETTA SHANE MD DR: DM/dilcia JOB#: [id number] / [id number]
== END 2019-07-25 17:03 | disposition home or self-care (01) | DRG 189 ==
LOC: ER 00:17 → 1 SOUTH 02:00
PROVIDERS: ADMIT Internal Medicine; ATTEND Internal Medicine
DX: J96.01 Acute respiratory failure with hypoxia (principal); I50.30 Unspecified diastolic (congestive) heart failure; J45.901 Unspecified asthma with (acute) exacerbation; B34.9 Viral infection, unspecified; E11.9 Type 2 diabetes mellitus without complications; E78.5 Hyperlipidemia, unspecified; F02.80 Dementia in other diseases classified elsewhere, unspecified severity, without behavioral disturbance, psychotic disturbance, mood disturbance, and anxiety; G20 Parkinson's disease; I11.0 Hypertensive heart disease with heart failure; I25.10 Atherosclerotic heart disease of native coronary artery without angina pectoris; I25.5 Ischemic cardiomyopathy; I48.0 Paroxysmal atrial fibrillation; I49.5 Sick sinus syndrome; J44.9 Chronic obstructive pulmonary disease, unspecified; Z95.0 Presence of cardiac pacemaker; Z95.1 Presence of aortocoronary bypass graft; M19.90 Unspecified osteoarthritis, unspecified site; Z88.0 Allergy status to penicillin; Z88.8 Allergy status to other drugs, medicaments and biological substances
CPT/HCPCS: 36415; 71045; 80048; 80053; 80076; 80307; 81001; 82553; 82803; 82947; 83605; 83690; 83735; 83880; 84443; 84484; 85025; 85027; 85379; 85610; 85730; 87040; 87804; 93005; 93970; 94618; 94640; J1650; J1815; J1940; J2920; J2930; J7120; J7613; J7620; J7626; 97116

== ENCOUNTER 2020-04-17 15:42 | Emergency (ER) | payer MEDICARE ==
[~2020-04-17] VITALS: Ht 149.9 cm; Wt 60.3 kg
[~2020-04-17 15:42] MED LIST: ACET325T21 PO; ALBU2.5V8 IH; AMIO200T6 PO; ATOR40TA59 PO; BENA20TA4 PO; BISA10SU4 RC; BUME1TAB3 PO; CARB1TAB22 PO; CARV6.2541 PO; CHOL200027 PO; FERR325T14 PO; FLUT15.812 NS; FLUT1BLS IH; FOLI0.8T32 PO; INSU100V13 SQ; LATA2.5D3 EACHEYE; LORA10TA3 PO; LUTE1CAP5 PO; MAGN400O7 PO; METF500T16 PO; MULT-735 PO; NA P133E2 RC; POLY2500 MC; RIVA15TA PO; SPIR25TA5 PO
[2020-04-17] MEDS ORDERED: IV NORMAL SALINE 1,000ML 1,000 ML IV SCH (16:10)
--- NOTE | 2020-04-17 16:19 | PHYS DOC ---
Past History Past Medical History: Arthritis, Asthma, CAD, CHF, COPD, Diabetes Additional Past Medical Histor: HX OF A FIB, CARDIOMEGALY, HYPERLIPIDEMIA Past Surgical History: Coronary Bypass Surgery, Pacemaker Additional Past Surgical Histo: RIGHT KNEE Alcohol Use: None Drug Use: None General Adult EDM: Chief Complaint: ABDOMINAL PAIN HPI: HPI: Patient is a 89-year-old female coming in with daughter, history of dementia and history provided predominantly by daughter, for 2 days of low abdominal pain radiating to the back. Pain has been getting constantly worse and patient has had decreased p.o. intake, also has noted urinary frequency. Blood sugars have been running in the 200s. Review of Systems: Review of Systems: Of systems limited to abdominal pain and back pain due to dementia Heart Score: Risk Factors: Risk Factors: DM, Current or recent (<one month) smoker, HTN, HLP, family history of CAD, obesity. Risk Scores: Score 0 - 3: 2.5% MACE over next 6 weeks - Discharge Home Score 4 - 6: 20.3% MACE over next 6 weeks - Admit for Clinical Observation Score 7 - 10: 72.7% MACE over next 6 weeks - Early Invasive Strategies Current Medications: Current Meds: Current Medications Medications (Trade) Dose Ordered Sig/Jaclyn Start Time Stop Time Status Last Admin Dose Admin Fentanyl Citrate (Fentanyl 2ml Vial) 25 mcg PRN Q15MIN PRN 04/17/20 16:15 04/18/20 16:14 UNV Sodium Chloride 1,000 ml @ 100 mls/hr Q10H 04/17/20 16:10 04/18/20 02:09 UNV Allergies: Allergies: Allergies Coded Allergies Type Severity Reaction Last Updated Verified Penicillins Allergy Unknown 07/23/19 Yes apixaban Allergy Unknown 07/23/19 Yes gold Au 198 Allergy Unknown 07/23/19 Yes metformin Allergy Unknown 07/23/19 Yes oxybutynin Allergy Unknown 07/23/19 Yes oyster extract Allergy Unknown 07/23/19 Yes raloxifene Allergy Unknown 07/23/19 Yes rosiglitazone Allergy Unknown 07/23/19 Yes wool Allergy Unknown 07/23/19 Yes Physical Exam: PE: Constitutional: Well developed, well nourished, appears to be in acute distress, non-toxic appearance. [] HENT: Normocephalic, atraumatic, bilateral external ears normal, oropharynx moist, no oral exudates, nose normal. [] Eyes: PERRLA, EOMI, conjunctiva normal, no discharge. [] Neck: Normal range of motion, no tenderness, supple, no stridor. [] Cardiovascular:Heart rate regular rhythm, no murmur [] Lungs & Thorax: Bilateral breath sounds clear to auscultation [] Abdomen: Bowel sounds normal, soft, tenderness or guarding, slight distention Skin: Warm, dry, no erythema, no rash. [] Back: No tenderness, no CVA tenderness. [] Extremities: No tenderness, no cyanosis, no clubbing, ROM intact, no edema. [] Neurologic: Alert and oriented X 3, normal motor function, normal sensory function, no focal deficits noted. [] Psychologic: Affect normal, alert oriented to self and situation Current Patient Data: Vital Signs: Vital Signs Date Time Temp Pulse Resp B/P (MAP) Pulse Ox O2 Delivery O2 Flow Rate FiO2 04/17/20 15:51 97.6 60 16 114/57 (76) 93 Room Air EKG: EKG: [] Radiology/Procedures: Radiology/Procedures: CT abdomen and pelvis with contrast History: Diffuse abdominal pain, back pain, bloating Technique: After the administration of intravenous contrast, CT imaging was performed of the abdomen and pelvis. No oral contrast was given. Multiplanar images are reviewed. Exposure: One or more of the following individualized dose reduction techniques were utilized for this examination: 1. Automated exposure control 2. Adjustment of the mA and/or kV according to patient size 3. Use of iterative reconstruction technique. Comparison: None Findings: There is some motion degradation. There is very small dependent right pleural effusion at the visualized lung base. There are leads from electronic cardiac device, not fully included. No focal abnormality is identified of the liver or pancreas. There is a large focus of relative hypodensity with some associated calcifications in the spleen, focus of abnormal density about 7.6 cm transverse by 7.5 cm AP by 6.8 cm CC. Internal density measurements are about 45 Hounsfield units. Remainder of the spleen has a lobulated contour. There is left adrenal nodule about 2.2 cm. There is no right adrenal nodularity. Both kidneys enhance, no hydronephrosis. There is scattered calcified plaque of the abdominal aorta and branches. There are several retroperitoneal nodes although not considered significantly enlarged based on short axis dimensions, largest to the left of the abdominal aorta about 0.8 cm short axis dimension. Accurate evaluation of bowel is limited without oral contrast. Bowel is not significantly dilated. There is no free air. There are trace dependent free fluid in the left pelvis. There is mild colonic diverticulosis greatest of the sigmoid colon. There is appearance of degree of wall thickening such as of the ascending colon and mid to distal transverse colon, also possibly of segments of the descending through the proximal sigmoid colon. Appendix is not confidently identified if still present. There is degenerative change of the pubic symphysis. There is multilevel lumbar facet degenerative change. Impression: 1. Suboptimally evaluated without oral contrast, there is appearance of degree of variable colonic wall thickening suggestive of colitis. There is mild colonic diverticulosis. 2. There is very small dependent right pleural effusion. 3. There is a large splenic lesion with some associated calcifications. This would be more definitively characterized with MRI. There are no previous exams to evaluate for change. 4. There is left adrenal nodule. [] Course & Med Decision Making: Course & Med Decision Making Pertinent Labs and Imaging studies reviewed. (See chart for details) Discussed recommendations for inpatient observation given high white cell count and patient age. Patient and her daughter are eager to go home and declined hospitalization. Discussed attempted outpatient treatment and strict return precautions. [] [place] Disclaimer: Lesly Disclaimer: This electronic medical record was generated, in whole or in part, using a voice recognition dictation system. Departure Departure: Impression: Primary Impression: Colitis, infectious Disposition: 01 HOME/RESIDENCE PRIOR TO ADM Condition: STABLE Referrals: PCP,NO (PCP) Patient Instructions: Colitis Additional Instructions: Return to emergency department if symptoms worsen. Scripts Ciprofloxacin Hcl (CIPROFLOXACIN HCL) 500 Mg Tablet 1 TAB PO DAILY for colitis, #7 TAB Prov: FLORENCIA AGUILAR MD 04/17/20 Acetaminophen With Codeine (ACETAMINOPHEN-COD #4 TABLET) 1 Each Tablet 1 EACH PO QIDPRN PRN for PAIN for 5 Days, #15 TAB 0 Refills Prov: FLORENCIA AGUILAR MD 04/17/20 Metronidazole (METRONIDAZOLE) 500 Mg Tablet 1 TAB PO TID for colitis for 10 Days, #30 TAB 0 Refills Prov: FLORENCIA AGUILAR MD 04/17/20 FLORENCIA AGUILAR MD Apr 17, 2020 16:19
[2020-04-17] MEDS ORDERED: IOHEXOL 300 MG/ML 75 ML VIAL. IV ONE (17:00)
[2020-04-17 17:18] LABS: BASO # 0.1 x10^3/uL (0.0-0.2); BASO % 0 % (0-3); EOS % 0 % (0-3); HEMATOCRIT 34.8 % (36.0-47.0); HEMOGLOBIN 11.2 g/dL (12.0-15.5); LYMPH # 0.4 x10^3/uL (1.0-4.8); LYMPH % 3 % (24-48); MEAN CORPUSCULAR HEMOGLOBIN 31 pg (25-35); MEAN CORPUSCULAR HGB CONC 32 g/dL (31-37); MEAN CORPUSCULAR VOLUME 96 fL (79-100); MONO % 11 % (0-9); NEUT # 15.3 x10^3uL (1.8-7.7); NEUT % 86 % (31-73); PLATELET COUNT 287 x10^3/uL (140-400); RED BLOOD COUNT 3.63 x10^6/uL (3.50-5.40); RED CELL DISTRIBUTION WIDTH 15.2 % (11.5-14.5); WHITE BLOOD COUNT 17.8 x10^3/uL (4.0-11.0)
[2020-04-17 17:32] LABS: CALCIUM 9.1 mg/dL (8.5-10.1); CREATININE 1.8 mg/dL (0.6-1.0); GFR 26.5; POTASSIUM 3.9 mmol/L (3.5-5.1)
[2020-04-17 17:44] LABS: ALBUMIN 2.8 g/dL (3.4-5.0); ALBUMIN/GLOBULIN RATIO 0.6 (1.0-1.7); TOTAL BILIRUBIN 0.7 mg/dL (0.2-1.0); TOTAL PROTEIN 7.2 g/dL (6.4-8.2)
[2020-04-17 17:46] LABS: MAGNESIUM 2.4 mg/dL (1.8-2.4)
--- NOTE | 2020-04-17 18:22 | RAD ---
CT abdomen and pelvis with contrast History: Diffuse abdominal pain, back pain, bloating Technique: After the administration of intravenous contrast, CT imaging was performed of the abdomen and pelvis. No oral contrast was given. Multiplanar images are reviewed. Exposure: One or more of the following individualized dose reduction techniques were utilized for this examination: 1. Automated exposure control 2. Adjustment of the mA and/or kV according to patient size 3. Use of iterative reconstruction technique. Comparison: None Findings: There is some motion degradation. There is very small dependent right pleural effusion at the visualized lung base. There are leads from electronic cardiac device, not fully included. No focal abnormality is identified of the liver or pancreas. There is a large focus of relative hypodensity with some associated calcifications in the spleen, focus of abnormal density about 7.6 cm transverse by 7.5 cm AP by 6.8 cm CC. Internal density measurements are about 45 Hounsfield units. Remainder of the spleen has a lobulated contour. There is left adrenal nodule about 2.2 cm. There is no right adrenal nodularity. Both kidneys enhance, no hydronephrosis. There is scattered calcified plaque of the abdominal aorta and branches. There are several retroperitoneal nodes although not considered significantly enlarged based on short axis dimensions, largest to the left of the abdominal aorta about 0.8 cm short axis dimension. Accurate evaluation of bowel is limited without oral contrast. Bowel is not significantly dilated. There is no free air. There are trace dependent free fluid in the left pelvis. There is mild colonic diverticulosis greatest of the sigmoid colon. There is appearance of degree of wall thickening such as of the ascending colon and mid to distal transverse colon, also possibly of segments of the descending through the proximal sigmoid colon. Appendix is not confidently identified if still present. There is degenerative change of the pubic symphysis. There is multilevel lumbar facet degenerative change. Impression: 1. Suboptimally evaluated without oral contrast, there is appearance of degree of variable colonic wall thickening suggestive of colitis. There is mild colonic diverticulosis. 2. There is very small dependent right pleural effusion. 3. There is a large splenic lesion with some associated calcifications. This would be more definitively characterized with MRI. There are no previous exams to evaluate for change. 4. There is left adrenal nodule. Electronically signed by: Cleve Reagn MD (04/17/2020 6:19 PM) [facility]
[2020-04-17 18:59] LABS: % LYMPHS 1 % (24-48); % MONOS 10 % (0-10); % SEGS 89 % (35-66); PLT ESTIMATE ADEQUATE (ADEQUATE)
[2020-04-17 19:15] LABS: BILIRUBIN,URINE SMALL (NEG); CLARITY,URINE CLOUDY; COLOR,URINE YELLOW; GLUCOSE,URINE NEG (NEG)
[2020-04-17 19:16] LABS: NITRITE,URINE NEG (NEG)
[2020-04-17 19:17] LABS: BACTERIA,URINE FEW /HPF (0-FEW); SQUAMOUS EPITHELIAL CELL,UR OCC /LPF
[2020-04-17 19:22] VITALS: BP 113/65
[2020-04-17] MEDS ORDERED: CIPR500T PO ×2 (20:13→20:30)
[2020-04-17] MEDS ORDERED: ACET-1871 PO (20:13)
[2020-04-17] MEDS ORDERED: METR-34 PO (20:13)
[2020-04-17] MEDS ORDERED: metroNIDAZOLE 500 MG TABLET PO ONE (20:30)
[2020-04-17] MEDS ORDERED: CIPROFLOXACIN HCL 500 MG TABLET PO ONE (20:30)
== END 2020-04-17 21:09 | disposition home or self-care (01) ==
LOC: ER 15:42
DX: A09 Infectious gastroenteritis and colitis, unspecified (principal); M19.90 Unspecified osteoarthritis, unspecified site; J44.9 Chronic obstructive pulmonary disease, unspecified; I25.810 Atherosclerosis of coronary artery bypass graft(s) without angina pectoris; I50.9 Heart failure, unspecified; E11.9 Type 2 diabetes mellitus without complications; E03.9 Hypothyroidism, unspecified; F03.90 Unspecified dementia, unspecified severity, without behavioral disturbance, psychotic disturbance, mood disturbance, and anxiety; Z95.0 Presence of cardiac pacemaker; Z88.0 Allergy status to penicillin; Z88.8 Allergy status to other drugs, medicaments and biological substances
CPT/HCPCS: 36415; 74177; 80053; 81001; 83605; 83690; 83735; 83880; 84484; 85007; 85025; 87077; 87086; 87186; 96361; 96374; 99285; J3010; J7030; Q9967